=== PATIENT | female | born 2000 | race Caucasian/White ===

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

== ENCOUNTER 2022-09-24 14:18 | Outpatient (CLI) | payer BC | END 2022-09-24 14:19 | disposition home or self-care (01) | LOC: EEG 14:18 | PROVIDERS: ATTEND Psychiatry & Neurology Neurology | DX: G40.219 Localization-related (focal) (partial) symptomatic epilepsy and epileptic syndromes with complex partial seizures, intractable, without status epilepticus (principal) | CPT/HCPCS: 95816; 95957 ==

== ENCOUNTER 2022-11-05 13:52 | Outpatient (CLI) | payer BC | END 2022-11-05 13:53 | disposition home or self-care (01) | LOC: EEG 13:52 | PROVIDERS: ATTEND Psychiatry & Neurology Neurology | DX: G40.219 Localization-related (focal) (partial) symptomatic epilepsy and epileptic syndromes with complex partial seizures, intractable, without status epilepticus (principal) | CPT/HCPCS: 95816; 95957 ==